=== PATIENT | male | born 1940 | race Caucasian/White ===

== ENCOUNTER 2017-08-26 16:15 | Emergency (ER) | payer MEDICARE, OTHER ==
--- NOTE | 2017-08-26 16:29 | ED Physician Documentation ---
History of Present Illness - Stated complaint Stated Complaint: GLF - Chief complaint Chief Complaint: General - History obtained from History obtained from: Patient, Family, EMS - History of Present Illness Timing: Other (77-year-old gentleman with COPD and A. fib brought in by ambulance because a few days ago he probably fell and was on the ground in his house for several days. He does not remember falling. He does complain of hip pain, left greater than right. EMS found him basically curled up on the floor on his right side. He does not think he had a head injury but is not quite sure.) Review of Systems Ten Systems: 10 systems reviewed and negative Constitutional: denies: Fever, Chills Cardiac: denies: Chest pain / pressure, Palpitations Respiratory: denies: Dyspnea, Cough GI: denies: Abdominal Pain, Nausea, Vomiting PD PAST MEDICAL HISTORY - Past Medical History Cardiovascular: Atrial fibrillation, Other Respiratory: COPD Neuro: None Endocrine/Autoimmune: None GI: GI bleed : None HEENT: Other Psych: None Musculoskeletal: None Derm: None Other Past Medical History: Flail ribs - Past Surgical History Past Surgical History: Yes General: Splenectomy Cardiovascular: Other - Present Medications Home Medications: Ambulatory Orders Medication Instructions Recorded Confirmed Lisinopril [Prinivil] 5 mg PO DAILY 06/19/14 01/10/15 Tiotropium [place] [Spiriva] 18 mcg INH DAILY 06/19/14 01/10/15 Bisacodyl Supp [Dulcolax Supp] 10 mg IL Q6H PRN #10 supp 01/10/15 01/10/15 Peg 3350/Na Sulf,Bicarb,Cl/KCl 4,000 ml PO ONCE #0 bottle 01/10/15 01/10/15 [Golytely] oxyCODONE [Roxicodone] 5 mg PO Q6HR 01/10/15 01/10/15 - Allergies Allergies/Adverse Reactions: Allergies Allergy/AdvReac Type Severity Reaction Status Date / Time No Known Drug Allergies Allergy Verified 08/26/17 16:24 - Living Situation Living Situation: reports: Alone - Social History Does the pt smoke?: No Smoking Status: Former smoker Does the pt drink ETOH?: No Does the pt have substance abuse?: No - Family History Family history: reports: Non contributory - Immunizations Immunizations are current?: Yes - POLST Patient has POLST: No PD ED PE NORMAL - Vitals Vital signs reviewed: Yes - General General: Alert and oriented X 3, No acute distress, Other (Poor memory for short -term events but is alert and oriented 3.) - HEENT HEENT: PERRL, EOMI, Other (Very dry and tacky mucous membranes) - Neck Neck: Supple, no meningeal sign, No bony TTP - Cardiac Cardiac: Other (Irregularly irregular and tachycardic without murmur) - Respiratory Respiratory: No respiratory distress, Clear bilaterally - Abdomen Abdomen: Normal bowel sounds, Soft, Non tender, Other (Large ventral hernia) - Back Back: No CVA TTP, No spinal TTP - Derm Derm: Normal color, Warm and dry - Extremities Extremities: Other (Some redness of the right arm from laying on it, but no tenderness or limited range of motion there. No evidence of compartment syndrome. Both hips are exquisitely tender and has severe pain with range of motion of either.) - Neuro Neuro: Alert and oriented X 3 Eye Opening: Spontaneous Motor: Obeys Commands Verbal: Oriented GCS Score: 15 - Psych Psych: Normal mood, Normal affect Results - Vitals Vitals: Vital Signs - 24 hr 08/26/17 08/26/17 08/26/17 16:20 17:50 18:18 Temperature 35.7 C L Heart Rate 142 H 116 H 117 H Respiratory 13 16 22 Rate Blood Pressure 108/71 117/71 O2 Saturation 85 L 96 08/26/17 18:51 Temperature Heart Rate 103 H Respiratory 20 Rate Blood Pressure 121/101 H O2 Saturation 98 Oxygen O2 Source Nasal cannula - EKG (time done) 1626 Rate: Rate (enter#) (134) Rhythm: Atrial fibrillation [place]: Normal Ischemia: Other (Lateral ST depression which could be from rapid rate, no ST elevation.) Computer interpretation: Agree with computer - Labs Labs: Laboratory Tests 08/26/17 08/26/17 08/26/17 17:49 17:49 17:49 WBC 25.0 H RBC 4.02 L Hgb 12.6 L Hct 38.8 L MCV 96.5 H MCH 31.3 H MCHC 32.4 RDW 14.2 Plt Count 288 MPV 7.7 Neut # 21.7 H Lymph # 0.8 L Gregory # 2.5 H Eos # 0.0 Baso # 0.0 Absolute Nucleated RBC 0.01 Band Neuts % (Manual) Not Reportable Nucleated RBC % 0.0 Differential Comment MANUAL=AUTO DIFF Manual Slide Review Indicated Platelet Estimate NORMAL (130-450,000) Platelet Morphology NORMAL APPEARANCE RBC Morph Micro Appear NORMAL APPEARANCE PT 12.8 H INR 1.1 APTT 18.9 L Sodium 144 Potassium 4.6 Chloride 111 Carbon Dioxide 20 L Anion Gap 13.0 BUN 100 H* Creatinine 2.4 H Estimated GFR (MDRD) 26 L Glucose 106 H Lactic Acid Calcium 8.7 Magnesium 2.8 Total Bilirubin 0.9 AST 167 H ALT 79 H Alkaline Phosphatase 109 Total Creatine Kinase 49975 H* CK-MB (CK-2) Troponin I B-Natriuretic Peptide Total Protein 6.9 Albumin 3.5 Globulin 3.4 Albumin/Globulin Ratio 1.0 Lipase 12 L Ethyl Alcohol < 5.0 08/26/17 08/26/17 08/26/17 17:49 17:49 17:49 WBC RBC Hgb Hct MCV MCH MCHC RDW Plt Count MPV Neut # Lymph # Gregory # Eos # Baso # Absolute Nucleated RBC Band Neuts % (Manual) Nucleated RBC % Differential Comment Manual Slide Review Platelet Estimate Platelet Morphology RBC Morph Micro Appear PT INR APTT Sodium Potassium Chloride Carbon Dioxide Anion Gap BUN Creatinine Estimated GFR (MDRD) Glucose Lactic Acid 1.9 Calcium Magnesium Total Bilirubin AST ALT Alkaline Phosphatase Total Creatine Kinase CK-MB (CK-2) 64.2 H Troponin I 0.19 B-Natriuretic Peptide 545 H Total Protein Albumin Globulin Albumin/Globulin Ratio Lipase Ethyl Alcohol - Rads (name of study) CT Head Radiology: EMP read contemporaneously (NAD, atrophy) CT Cspine Radiology: EMP read contemporaneously (Chronic appearing C4 and C5 superior endplate height loss, he does not have midline cervical spine pain. Degenerative reversal of cervical lordosis and diffuse degenerative disc and facet arthropathy) 1v Chest XR Radiology: EMP read contemporaneously (NAD) B hip xr Radiology: EMP read contemporaneously (Left femoral neck/intertrochanteric femur fracture without evidence of dislocation.) Procedures - General procedure General procedure: He was difficult for IV access, the IV he had was tenuous and we could not get blood. I personally placed a long 20-gauge IV in the right antecubital fossa using real-time ultrasound guidance after ChloraPrep which prasanth and flushed well. PD MEDICAL DECISION MAKING - ED course ED course: 77-year-old gentleman whose been on the floor for a few days with a left hip fracture. He does have evidence of rhabdomyolysis and acute on chronic renal failure, A. fib with RVR and a very mildly elevated troponin. He was administered fluids, he looks hypovolemic. He declined any pain medication here. He was given cautious fluid boluses. Given the multimodal nature of his illnesses and likely need for cardiac and nephrology consultation prior to his hip fracture repair he requested transfer to [place] for definitive treatment.He was given divided doses of diltiazem for his A. fib with RVR. He was accepted by Dr. Pitts the hospitalist in [place] at 652 in transfer, cobras were completed. - Critical Care Time(min): 45 Time Includes: Direct patient care, Review records, Reassess patient, Document care, Coordinate care, Medical consult, Family consult for tx dec Data interpretation: Labs, Pulse ox Procedures included in critical care time: Peripheral IV Procedures excluded from critical care time: EKG Departure - Departure Disposition: 02 Transfer Acute Care Hosp Clinical Impression: Atrial fibrillation with RVR, Elevated troponin I level COPD (chronic obstructive pulmonary disease) Qualifiers: COPD type: unspecified COPD Qualified Code(s): J44.9 - Chronic obstructive pulmonary disease, unspecified Hypertension Qualifiers: Hypertension type: essential hypertension Qualified Code(s): I10 - Essential ( primary) hypertension Closed left hip fracture Qualifiers: Encounter type: initial encounter Qualified Code(s): S72.002A - Fracture of unspecified part of neck of left femur, initial encounter for closed fracture Rhabdomyolysis Qualifiers: Rhabdomyolysis type: non-traumatic Qualified Code(s): M62.82 - Rhabdomyolysis Acute renal failure Qualifiers: Acute renal failure type: unspecified Qualified Code(s): N17.9 - Acute kidney failure, unspecified Condition: Serious
[2017-08-26] MEDS ORDERED: diltiaZEM INJ 5 MG/ML VIAL ONE (17:07)
--- NOTE | 2017-08-26 17:44 | CT Preliminary Report ---
Exam: CT HEAD W/O IMPRESSION: Generalized age-related cortical atrophic changes without evidence of acute intracranial abnormality. [facility] SITE ID: [id number]
[2017-08-26] MEDS: diltiaZEM INJ 5 MG/ML VIAL IVP STA ×2 (17:53→18:45)
--- NOTE | 2017-08-26 17:56 | CT Report ---
EXAM: CT HEAD EXAM DATE: 08/26/2017 05:29 p.m. CLINICAL HISTORY: Altered mental status. COMPARISON: 01/04/[address] TECHNIQUE: Multiaxial CT images were obtained from the foramen magnum to the vertex. IV contrast: Non e. Reformats: Coronal. In accordance with CT protocol optimization, one or more of the following dose reduction techniques w ere utilized for this exam: automated exposure control, adjustment of mA and/or KV based on patient s ize, or use of iterative reconstructive technique. FINDINGS: Parenchyma: No intraparenchymal hemorrhage. No evidence of mass, midline shift, or CT findings of acu te infarction. Maynard-white differentiation is distinct. Left parietal encephalomalacia is noted. Extraaxial Spaces: Normal for age. No subdural or epidural collections identified. Ventricles: The ventricles and cortical sulci are enlarged, consistent with age-related tissue loss. Sinuses and orbits: Fluid is present in the anterior right ethmoid sinus. Mastoids are clear. Bones: No evidence of fracture or calvarial defect. Other: Diffuse chronic microangiopathic white matter changes are evident. Extensive cavernous carotid artery calcifications are noted. IMPRESSION: Generalized age-related cortical atrophic changes without evidence of acute intracranial abnormality. [facility] Referring Provider Line: [phone] SITE ID: [id number]
[2017-08-26] MEDS: SODIUM CHLORIDE 0.9% 1,000 ML IV ONE ×2 (17:58→18:44)
[2017-08-26] MEDS: SODIUM CHLORIDE 0.9% 500 ML IV ONE (17:58)
[2017-08-26 18:01] LABS: BASOPHILS % (AUTO) 0.1 %; HCT - HEMATOCRIT 38.8 % (42.0-52.0); HGB - HEMOGLOBIN 12.6 g/dL (14.0-18.0); LYMPHOCYTES # (AUTO) 0.8 10^3/uL (1.5-3.5); LYMPHOCYTES % (AUTO) 3.2 %; MEAN CORPUSCULAR HEMOGLOBIN 31.3 pg (27.0-31.0); MEAN CORPUSCULAR HGB CONC 32.4 g/dL (32.0-36.0); MEAN CORPUSCULAR VOLUME 96.5 fL (80.0-94.0); MEAN PLATELET VOLUME 7.7 fL (7.4-11.4); MONOCYTES # (AUTO) 2.5 10^3/uL (0.0-1.0); MONOCYTES % (AUTO) 9.8 %; NEUTROPHILS # (AUTO) 21.7 10^3/uL (1.5-6.6); NEUTROPHILS % (AUTO) 86.9 %; RED BLOOD COUNT 4.02 10^6/uL (4.70-6.10); RED CELL DISTRIBUTION WIDTH 14.2 % (12.0-15.0)
--- NOTE | 2017-08-26 18:02 | CT Preliminary Report ---
Exam: CT CERVICAL SPINE W/O IMPRESSION: 1.No acute fracture. Chronic appearing C4 and C5 superior endplate height loss. No adjacent hematoma. Correlate with symptoms. If patient has midcervical spine pain, they may benefit from MRI further ev aluate. 2. Reversible normal cervical lordosis likely degenerative in origin. No spondylolisthesis. 3. Diffuse degenerative disk and facet arthropathy noted throughout the cervical spine. No prevertebr al soft tissue hematoma. [facility] SITE ID: [id number]
[2017-08-26 18:12] LABS: INR 1.1 (0.8-1.2); PT - PROTHROMBIN TIME 12.8 secs (9.9-12.6)
[2017-08-26 18:16] LABS: TROPONIN I 0.19 ng/mL (<0.49)
[2017-08-26 18:18] LABS: CREATINE KINASE MB 64.2 ng/mL (0.6-6.3)
[2017-08-26 18:19] LABS: PARTIAL THROMBOPLASTIN TIME 18.9 secs (24.9-33.3)
--- NOTE | 2017-08-26 18:19 | CT Report ---
EXAM: CT CERVICAL SPINE WITHOUT CONTRAST DATE: 08/26/2017 05:29 PM. HISTORY: Fall.. COMPARISONS: None. TECHNIQUE: Thin-section axial images were acquired of the cervical spine without contrast. Post-proce ssing: Coronal and sagittal reformats. Other: None. In accordance with CT protocol optimization, one or more of the following dose reduction techniques w ere utilized for this exam: automated exposure control, adjustment of mA and/or KV based on patient s ize, or use of iterative reconstructive technique. FINDINGS: Alignment: Normal. No scoliosis or spondylolisthesis. Reverse of the normal cervical lordosis centere d in the mid cervical spine. Bones: No bone lesion or acute fracture is noted. Left C2-C3 and C3-C4 and right C2-C3 facet joints a re fused. Approximately 25% C4 superior endplate height loss without adjacent paraspinal hematoma. Ap proximately 10-15% C5 superior endplate height loss. Interspace Levels/Facets: C1-C2: Moderate degenerative changes within the C1 arch and dens articulation. Mild narrowing at the C1-C2 lateral mass articulation. C2-C3: Disk space is partially fused. Mild narrowing is noted. No bony foraminal stenosis. Both facet joints are fused. C3-C4: Mild disk narrowing. Partial fusion of the left and complete fusion of the right facet joint. No bony foraminal stenosis. C4-C5: Moderate disk narrowing with prominent disk osteophyte complex. Prominent disk osteophyte comp shama and uncovertebral joint hypertrophy results in marked left and moderate right foraminal stenosis. C5-C6: Moderate disk narrowing with prominent disk osteophyte complex and uncovertebral joint hypertr ophy results in marked bilateral bony foraminal stenosis. C6-C7: Moderate disk narrowing with prominent uncovertebral joint hypertrophy results in marked bilat eral bony foraminal stenosis. C7-T1: Moderate disk narrowing. Mild right and moderate left bony foraminal stenosis. Musculature: Normal. No fatty atrophy. Other: The paravertebral and prevertebral soft tissues are normal. Centrilobular emphysema noted in t he lung apices. 8 mm low-density left thyroid nodule. No supraclavicular or axillary adenopathy. IMPRESSION: 1.No acute fracture. Chronic-appearing C4 and C5 superior endplate height loss. No adjacent hematoma. Correlate with symptoms. If patient has midcervical spine pain, they may benefit from MRI to further evaluate. 2. Reversal of the normal cervical lordosis likely degenerative in origin. No spondylolisthesis. 3. Diffuse degenerative disk and facet arthropathy noted throughout the cervical spine. No prevertebr al soft tissue hematoma. [facility] Referring Provider Line: [phone] SITE ID: [id number]
[2017-08-26 18:26] LABS: PLATELET ESTIMATE, MANUAL NORMAL (130-450,000) (NORMAL); PLATELET MORPHOLOGY NORMAL APPEARANCE (NORMAL)
[2017-08-26 18:28] LABS: NP AUTO DIFFERENTIAL? NO; NP MAN DIFFERENTIAL? YES
[2017-08-26 18:29] LABS: BILIRUBIN,TOTAL 0.9 mg/dL (0.2-1.0); CALCIUM 8.7 mg/dL (8.5-10.3); CARBON DIOXIDE - CO2 20 mmol/L (21-32); CHLORIDE 111 mmol/L (101-111); CREATININE 2.4 mg/dL (0.6-1.2); GFR - MDRD 26 (>89); GLUCOSE 106 mg/dL (70-100); LIPASE 12 U/L (22-51); MAGNESIUM 2.8 mg/dL (1.7-2.8); POTASSIUM 4.6 mmol/L (3.5-5.0); SODIUM 144 mmol/L (135-145); TOTAL PROTEIN 6.9 g/dL (6.7-8.2)
--- NOTE | 2017-08-26 18:32 | XRAY Preliminary Report ---
Exam: XR HIPS 2V BILAT IMPRESSION: There is left low femoral neck/intertrochanteric femur fracture. Mild varus angulation. N o evidence of dislocation. [facility] SITE ID: [id number]
--- NOTE | 2017-08-26 18:33 | XRAY Preliminary Report ---
Exam: XR CHEST 1 VIEW IMPRESSION: No acute intrathoracic plain film abnormality. [facility] SITE ID: [id number]
--- NOTE | 2017-08-26 18:34 | XRAY Report ---
EXAM: BILATERAL HIP RADIOGRAPHY EXAM DATE: 08/26/2017 05:06 PM. CLINICAL HISTORY: Hip pain, fall. COMPARISON: None. TECHNIQUE: 2 views each. FINDINGS: Bones: There is left low femoral neck/intertrochanteric femur fracture. No clear evidence of right pr oximal femur fracture. No other focal bony abnormalities are seen. Right Hip: No evidence of dislocation. Left Hip: No evidence of dislocation. Soft Tissues: Normal. No soft tissue swelling. IMPRESSION: There is left lower femoral neck/intertrochanteric femur fracture. Mild varus angulation. No evidence of dislocation. [facility] Referring Provider Line: [phone] SITE ID: [id number]
--- NOTE | 2017-08-26 18:35 | XRAY Report ---
EXAM: CHEST RADIOGRAPHY EXAM DATE: 08/26/2017 06:06 PM. CLINICAL HISTORY: Confusion. COMPARISON: None. TECHNIQUE: 1 view. FINDINGS: Lungs/Pleura: Lungs are well-expanded. No evidence of focal infiltrate. No large effusion. No pneumot horax. Mediastinum: Within exam limitations, the cardiomediastinal contour is normal. Other: None. IMPRESSION: No acute intrathoracic plain film abnormality. [facility] Referring Provider Line: [phone] SITE ID: [id number]
[2017-08-26 18:44] LABS: BUN - BLOOD UREA NITROGEN 100 mg/dL (6-20)
[2017-08-26 20:07] VITALS: BP 121/79
--- NOTE | 2017-08-26 20:52 | XRAY Preliminary Report ---
Exam: XR HUMERUS RT IMPRESSION: No evidence of fracture or dislocation. [facility] SITE ID: [id number]
--- NOTE | 2017-08-26 20:54 | XRAY Preliminary Report ---
Exam: XR SHOULDER 2 VIEW RT IMPRESSION: No evidence of fracture or dislocation. [facility] SITE ID: [id number]
--- NOTE | 2017-08-26 20:55 | XRAY Report ---
EXAM: RIGHT HUMERUS RADIOGRAPHY EXAM DATE: 08/26/2017 08:11 PM. CLINICAL HISTORY: Arm pain. COMPARISON: None. TECHNIQUE: 2 views. FINDINGS: Bones: No fracture or acute focal bony lesion. Joints: No evidence of dislocation. Soft Tissues: No unexpected soft tissue findings. IMPRESSION: No evidence of fracture or dislocation. [facility] Referring Provider Line: [phone] SITE ID: [id number]
--- NOTE | 2017-08-26 20:56 | XRAY Report ---
EXAM: RIGHT SHOULDER RADIOGRAPHY EXAM DATE: 08/26/2017 08:11 PM. CLINICAL HISTORY: Arm pain. COMPARISON: None. TECHNIQUE: 3 views. FINDINGS: Bones: No fracture or acute bony lesion. Joints: No evidence of dislocation. Soft Tissues: No unexpected soft tissue findings. IMPRESSION: No evidence of fracture or dislocation. [facility] Referring Provider Line: [phone] SITE ID: [id number]
== END 2017-08-26 20:54 | disposition short-term general hospital (02) ==
LOC: EDUNIT# → ED 16:15
DX: S72.092A Other fracture of head and neck of left femur, initial encounter for closed fracture (principal); S72.142A Displaced intertrochanteric fracture of left femur, initial encounter for closed fracture; W18.39XA Other fall on same level, initial encounter; Y92.019 Unspecified place in single-family (private) house as the place of occurrence of the external cause; I48.91 Unspecified atrial fibrillation; R79.89 Other specified abnormal findings of blood chemistry; J44.9 Chronic obstructive pulmonary disease, unspecified; M62.82 Rhabdomyolysis; N17.9 Acute kidney failure, unspecified; I12.9 Hypertensive chronic kidney disease with stage 1 through stage 4 chronic kidney disease, or unspecified chronic kidney disease; N18.9 Chronic kidney disease, unspecified; R41.3 Other amnesia; M50.30 Other cervical disc degeneration, unspecified cervical region; Z87.891 Personal history of nicotine dependence
CPT/HCPCS: 36415; 51798; 70450; 71010; 72125; 73521; 80053; 80320; 82550; 82553; 83605; 83690; 83735; 83880; 84484; 85025; 85610; 85730; 87040; 93005; 96361; 96374; 99284; 99285; 99291